=== PATIENT | male | born 1980 | race Two or more races ===

== ENCOUNTER 2019-08-20 04:09 | Emergency (ER) | payer SELFPAY ==
[~2019-08-20] VITALS: Ht 167.6 cm; Wt 80.0 kg
[2019-08-20 04:12] VITALS: Ht 167.6 cm; Wt 80.0 kg
[2019-08-20] MEDS ORDERED: AMOXICILLIN500 M1 PO (04:28)
[2019-08-20] MEDS ORDERED: HYDROCODON-ACET15 ML PO (04:28)
[2019-08-20 05:20] LABS: HEMATOCRIT 45.2 % (42.0-54.0); HEMOGLOBIN 15.5 g/dL (13.5-17.5); MCH 31.3 pg (26.0-34.0); MCHC 34.3 g/dL (31.0-37.0); MCV 91.1 fL (80.0-100.0); MEAN PLATELET VOLUME 10.6 fL (7.4-10.4); PLATELET COUNT 204 10x3/uL (130-400); RBC 4.96 10x6/uL (4.20-6.10); RDW 12.8 % (11.5-14.5); WBC 22.6 10x3/uL (4.8-10.8)
[2019-08-20 05:30] LABS: CALC OSMOLALITY 277 mosm/kg (275-300); CALCIUM 8.9 mg/dL (8.5-10.1); CHLORIDE - SERUM 100 mmol/L (98-107); CREATININE - SERUM 1.1 mg/dL (0.6-1.3); GLUCOSE 154 mg/dL (74-106); POTASSIUM - SERUM 3.9 mmol/L (3.5-5.1); SODIUM 137 mmol/L (136-145); UREA NITROGEN 15 mg/dL (7-18); eGFR NON AFRICAN AMERICAN 79 mL/min (90-120)
[2019-08-20 05:32] LABS: MONO NEGATIVE (NEGATIVE)
--- NOTE | 2019-08-20 05:39 | NUR ---
PT REPORTS SLIGHT DECREASE IN PAIN AFTER RECEIVING IV TORADOL AND PO TYLENOL. PT AWAKE AND ALERT.
[2019-08-20 05:46] LABS: LYMPHOCYTES 7 % (15-50); MONOCYTES 8 % (2-11); NEUTROPHILS 80 % (40-80); PLATELET ESTIMATE NORMAL; SMUDGE CELLS OCC; TOXIC GRANULATION 2+
--- NOTE | 2019-08-20 05:58 | NUR ---
PT LEFT ED VIA STRETCHER FOR CT.
[2019-08-20 06:01] VITALS: BP 140/86
--- NOTE | 2019-08-20 06:12 | NUR ---
PT RETURNED FROM CT VIA STRETCHER. NS INFUSING ON ARRIVAL.
--- NOTE | 2019-08-20 06:48 | NUR ---
RN CONTACTED TRANSFER CENTER REGARDING PT TRANSFER FOR ENT COVERAGE FOR POSSIBLE EPIGLOTTITIS.
--- NOTE | 2019-08-20 07:02 | NUR ---
PT ACCEPTED AT [facility] FOR ER TO ER TRANSFER. [facility]ING [facility].
--- NOTE | 2019-08-20 07:28 | NUR ---
3RD DOSE OF ROCEPHIN IN AT THIS TIME.
[2019-08-20 08:40] VITALS: BP 138/89
--- NOTE | 2019-08-20 09:44 | NUR ---
CONT. TO WAIT ON TRANSPORT
--- NOTE | 2019-08-20 10:34 | NUR ---
PT TO [facility]IA [facility]
[2019-08-22 12:09] LABS: EBV - EARLY ANTIGEN AB IGG 17.2 U/mL (0.0-8.9); EBV VIRAL CAPSID AB IGM <36.0 U/mL (0.0-35.9)
== END 2019-08-20 07:27 | disposition other institution (70) ==
LOC: D.ER 04:09 → EDBD 04:09 → D.MS 05:29 → D.ER 05:29
PROVIDERS: Emergency Medicine
DX: J02.0 Streptococcal pharyngitis (principal); Z72.0 Tobacco use; R13.10 Dysphagia, unspecified